=== PATIENT | female | born 1950 | race Caucasian/White ===

== ENCOUNTER 2020-12-08 15:56 | Emergency (ER) | payer OTHER ==
[~2020-12-08] VITALS: Ht 165.1 cm; Wt 70.3 kg
[2020-12-08 18:15] VITALS: BP 151/87
== END 2020-12-08 18:55 | disposition home or self-care (01) ==
LOC: ER 15:58
DX: S82.55XA Nondisplaced fracture of medial malleolus of left tibia, initial encounter for closed fracture (principal); S46.912A Strain of unspecified muscle, fascia and tendon at shoulder and upper arm level, left arm, initial encounter; I10 Essential (primary) hypertension; E11.9 Type 2 diabetes mellitus without complications; V43.52XA Car driver injured in collision with other type car in traffic accident, initial encounter; Y93.89 Activity, other specified; Y92.410 Unspecified street and highway as the place of occurrence of the external cause; Y99.8 Other external cause status
CPT/HCPCS: 29515; 73030; 73610